=== PATIENT | female | born 1995 | race Caucasian/White ===

== ENCOUNTER 2021-09-03 16:02 | Emergency (ER) | payer SELFPAY ==
[~2021-09-03] VITALS: Ht 160 cm; Wt 100.0 kg
[2021-09-03 16:08] VITALS: BP 129/100; PULSE 98; TEMP 98
== END 2021-09-03 16:41 | disposition home or self-care (01) ==
LOC: COL.ER 16:02
DX: U09.9 Post COVID-19 condition, unspecified (principal); Z91.040 Latex allergy status